=== PATIENT | female | born 1960 | race Caucasian/White ===

== ENCOUNTER 2016-11-25 01:41 | Emergency (ER) | payer OTHER ==
[2016-11-25 01:48] VITALS: BP 181/75
--- NOTE | 2016-11-25 01:57 | EDM.PDOC ---
ED HPI GENERAL MEDICAL PROBLEM - General Chief Complaint: Cardiovascular Problem Stated Complaint: SOMETHING GOING ON WITH HEART Time Seen by Provider: 11/25/16 01:47 Source of Information: Reports: Patient History Limitations: Reports: No Limitations - History of Present Illness INITIAL COMMENTS - FREE TEXT/NARRATIVE: This 56 yo female patient reports to the ED with intermittent episodes of heart palpitations. The patient reports her first episode happened at about 2230 last night. The patient reports at that time she was shutting the curtains at her home when she felt her heart was doing something. The patient reports she felt very lightheaded and dizzy at that time. Since the initial episode, the patient reports she has had numerous other similar episodes. The patient reports she has not had anything like this in the past. The patient has a past medical history of Graves Disease (thyroid is now under control) and hypertension. The patient reports no additional stress in her life at this time. Onset: Sudden Onset Date: 11/24/16 Onset Time: 22:30 Duration: Intermittent Location: Reports: Chest Quality: Reports: Dull Severity: Mild Improves with: Reports: None Worsens with: Reports: None - Related Data Allergies Allergy/AdvReac Type Severity Reaction Status Date / Time amoxicillin Allergy Rash Verified 11/25/16 02:08 cephalexin [From Keflex] Allergy Rash Verified 11/25/16 02:08 methimazole [From Tapazole] Allergy Other Verified 11/25/16 02:08 sulfamethoxazole Allergy Rash Verified 11/25/16 02:08 [From Bactrim] trimethoprim [From Bactrim] Allergy Rash Verified 11/25/16 02:08 Home Meds: Home Meds Aspirin 1 tab PO DAILY 11/25/16 [History] Insulin Glarg,Human.Rec.Analog [Lantus] 14 unit SQ BEDTIME 11/25/16 [History] Insulin Lispro [Humalog Kwikpen U-100] 2 - 4 units SQ TIDAC 11/25/16 [History] Multivitamin [Multi-Vitamin Daily] 1 tab PO DAILY 11/25/16 [History] [place]-3 Fatty Acids [Fish Oil] 2 tab PO DAILY 11/25/16 [History] Valsartan 60 mg PO DAILY 11/25/16 [History] ED ROS GENERAL - Review of Systems Review Of Systems: ROS reveals no pertinent complaints other than HPI. ED EXAM, GENERAL - Physical Exam Exam: See Below Exam Limited By: No Limitations General Appearance: Alert, WD/WN, Moderate Distress Eye Exam: Bilateral Eye: EOMI, Normal Inspection, PERRL Ears: Normal External Exam, Normal Canal, Hearing Grossly Normal, Normal TMs Throat/Mouth: Normal Inspection, Normal Lips, Normal Teeth, Normal Gums, Normal Oropharynx, Normal Voice, No Airway Compromise Head: Atraumatic, Normocephalic Neck: Normal Inspection, Supple, Non-Tender, Full Range of Motion Respiratory/Chest: No Respiratory Distress, Lungs Clear, Normal Breath Sounds, No Accessory Muscle Use, Chest Non-Tender Cardiovascular: Normal Peripheral Pulses, Regular Rate, Rhythm, No Edema, No Gallop, No JVD, No Murmur, No Rub GI/Abdominal: Normal Bowel Sounds, Soft, Non-Tender, No Organomegaly, No Distention, No Abnormal Bruit, No Mass (Female) Exam: Deferred Rectal (Female) Exam: Deferred Back Exam: Normal Inspection, Full Range of Motion, NT Extremities: Normal Inspection, Normal Range of Motion, Non-Tender, Normal Capillary Refill, No Pedal Edema Neurological: Alert, Oriented, CN II-XII Intact, Normal Cognition, Normal Gait, Normal Reflexes, No Motor/Sensory Deficits Psychiatric: Anxious Skin Exam: Warm, Dry, Intact, Normal Color, No Rash Lymphatic: No Adenopathy Course - Vital Signs Last Recorded V/S: Last Vital Signs Temp 36.0 C 11/25/16 01:47 Pulse 79 11/25/16 01:47 Resp 20 11/25/16 01:47 BP 181/75 H 11/25/16 01:47 Pulse Ox 100 11/25/16 01:47 - Orders/Labs/Meds Orders: Active Orders 24 hr Category Date Time Status EKG Documentation Completion [RC] URGENT Care 11/25/16 01:46 Ordered Chest 1V Frontal [CR] Urgent Exams 11/25/16 01:51 Ordered Labs: Laboratory Tests 11/25/16 11/25/16 11/25/16 Range/Units 02:00 02:00 02:00 WBC 6.0 (5.0-10.0) 10^3/uL RBC 4.21 (4.2-5.4) 10^6/uL Hgb 13.9 (12.0-16.0) g/dL Hct 39.3 (37.0-47.0) % MCV 93.3 (80-100) fL MCH 33.0 (27.0-34.0) pg MCHC 35.4 H (33.0-35.0) g/dL Plt Count 186 (150-450) 10^3/uL Neut % (Auto) 78.7 H (42.2-75.2) % Lymph % (Auto) 17.1 L (20.5-50.1) % [place] % (Auto) 3.7 (2-8) % Eos % (Auto) 0.2 L (1.0-3.0) % Baso % (Auto) 0.3 (0.0-1.0) % Sodium 135 (135-145) mmol/L Potassium 4.2 (3.6-5.0) mmol/L Chloride 101 (101-111) mmol/L Carbon Dioxide 23.0 (21.0-31.0) mmol/L Anion Gap 15.2 BUN 19 H (7-18) mg/dL Creatinine 0.8 (0.6-1.3) mg/dL Est Cr Clr Drug Dosing 70.66 mL/min Estimated GFR (MDRD) > 60 BUN/Creatinine Ratio 23.75 Glucose 226 H (74-105) mg/dL Calcium 9.5 (8.4-10.2) mg/dl Total Bilirubin 0.7 (0.2-1.0) mg/dL AST 18 (10-42) IU/L ALT 17 (10-60) IU/L Alkaline Phosphatase 68 (42-121) IU/L Troponin I < 0.02 (0.00-0.02) ng/ml Total Protein 6.9 (6.7-8.2) g/dl Albumin 4.3 (3.2-5.5) g/dl Globulin 2.6 Albumin/Globulin Ratio 1.65 TSH, Ultra Sensitive 0.95 (0.35-7.0) uIu/mL Departure - Departure Time of Disposition: 03:35 Disposition: Home, Self-Care 01 Condition: fair Clinical Impression: Palpitations Instructions: Palpitations, [id number] Forms: ED Department Discharge Care Plan Goals: The patient was advised of the examination, lab, EKG and x-ray results during the visit. The patient was encouraged to continue to monitor herself for any additional episodes. If the patient has any additional symptoms or further concerns, the patient should follow-up with her primary care facility or return to the emergency department. - My Orders Last 24 Hours: My Active Orders 11/25/16 01:46 EKG Documentation Completion [RC] URGENT 11/25/16 01:51 Chest 1V Frontal [CR] Urgent - Assessment/Plan Last 24 Hours: My Active Orders 11/25/16 01:46 EKG Documentation Completion [RC] URGENT 11/25/16 01:51 Chest 1V Frontal [CR] Urgent
[2016-11-25 02:28] LABS: CHLORIDE,CL 101 mmol/L (101-111); SODIUM,NA 135 mmol/L (135-145)
--- NOTE | 2016-12-18 09:28 | EKG ---
11/25/2016- ELEN CINTRON - This is a standard 12-lead EKG showing normal sinus rhythm with a ventricular rate 71 beats per minute. Normal MS interval, normal QRS duration and no significant ST-T changes. [facility] /[id number]
== END 2016-11-25 03:41 | disposition home or self-care (01) ==
LOC: DL.ED 01:41
DX: R00.2 Palpitations (principal); Z88.1 Allergy status to other antibiotic agents; Z88.8 Allergy status to other drugs, medicaments and biological substances; Z79.82 Long term (current) use of aspirin; Z79.4 Long term (current) use of insulin; Z79.899 Other long term (current) drug therapy
CPT/HCPCS: 36415; 71010; 80053; 84443; 84484; 85025; 93005; 99284

== ENCOUNTER 2022-06-13 19:54 | Emergency (ER) | payer BC, OTHER ==
[2022-06-13 20:59] VITALS: BP 149/70; PULSE 86
[2022-06-13] MEDS ORDERED: Lidocaine 1% 10 ML MDV INJECT ONE (23:09)
[2022-06-13] MEDS ORDERED: Bacitracin Oint 1 GM U/D Packet TOP ONE (23:13)
== END 2022-06-14 01:16 | disposition home or self-care (01) ==
LOC: DL.ED 19:54
DX: S61.452A Open bite of left hand, initial encounter (principal); E11.9 Type 2 diabetes mellitus without complications; E03.9 Hypothyroidism, unspecified; Z86.16 Personal history of COVID-19; Z88.0 Allergy status to penicillin; Z88.1 Allergy status to other antibiotic agents; Z88.8 Allergy status to other drugs, medicaments and biological substances; Z79.82 Long term (current) use of aspirin; Z79.4 Long term (current) use of insulin; Z79.899 Other long term (current) drug therapy; W54.0XXA Bitten by dog, initial encounter
CPT/HCPCS: 12001; 99283

== ENCOUNTER 2024-01-12 14:32 | Emergency (ER) | payer BC ==
[2024-01-12 14:51] VITALS: BP 141/88; PULSE 112
[2024-01-12] MEDS: Take Home: Clindamycin HCl 150 MG, 12 Cap Pack PO ONE (14:58)
== END 2024-01-12 15:05 | disposition home or self-care (01) ==
LOC: DL.ED 14:32
DX: S20.462A Insect bite (nonvenomous) of left back wall of thorax, initial encounter (principal); L03.312 Cellulitis of back [any part except buttock and flank]; E11.9 Type 2 diabetes mellitus without complications; E03.9 Hypothyroidism, unspecified; Z88.0 Allergy status to penicillin; Z88.2 Allergy status to sulfonamides; Z88.8 Allergy status to other drugs, medicaments and biological substances; Z79.4 Long term (current) use of insulin; Z79.82 Long term (current) use of aspirin; Z79.890 Hormone replacement therapy; Z79.899 Other long term (current) drug therapy; Z86.16 Personal history of COVID-19; W57.XXXA Bitten or stung by nonvenomous insect and other nonvenomous arthropods, initial encounter
CPT/HCPCS: 99282; A9270

== ENCOUNTER 2024-05-13 00:30 | Emergency (ER) | payer BC ==
[2024-05-13 00:48] VITALS: BP 177/87; PULSE 98
[2024-05-13] MEDS: Azithromycin 250 MG Tab PO ONE (01:06)
== END 2024-05-13 01:19 | disposition home or self-care (01) ==
LOC: DL.ED 00:30
DX: J18.9 Pneumonia, unspecified organism (principal); M19.90 Unspecified osteoarthritis, unspecified site; E11.9 Type 2 diabetes mellitus without complications; E03.9 Hypothyroidism, unspecified; Z86.16 Personal history of COVID-19; Z88.0 Allergy status to penicillin; Z88.2 Allergy status to sulfonamides; Z88.1 Allergy status to other antibiotic agents; Z88.8 Allergy status to other drugs, medicaments and biological substances; Z79.4 Long term (current) use of insulin; Z79.82 Long term (current) use of aspirin; Z79.890 Hormone replacement therapy; Z79.899 Other long term (current) drug therapy
CPT/HCPCS: 87428; 99283; 99284; A9270